=== PATIENT | male | born 1960 | race Caucasian/White ===

== ENCOUNTER 2022-11-06 19:12 | Emergency (ER) | payer OTHER ==
[2022-11-06] MEDS ORDERED: Proparacaine 0.5% Ophth Soln 15 ML Bottle EYELF PRN (19:19)
[2022-11-06] MEDS ORDERED: Fluorescein 1 MG Ophth Strip EYELF ONE (19:20)
[2022-11-06] MEDS ORDERED: Polymyxin B/Trimethoprim 10 ML Bottle EYELF ONE (19:59)
[2022-11-06] MEDS ORDERED: Bacitracin/Polymyxin B Ophth Oint 3.5 GM Tube EYELF SCH (21:00)
== END 2022-11-06 20:07 | disposition home or self-care (01) ==
LOC: VM.ED 19:12
DX: S05.02XA Injury of conjunctiva and corneal abrasion without foreign body, left eye, initial encounter (principal); W22.8XXA Striking against or struck by other objects, initial encounter
CPT/HCPCS: 99283

== ENCOUNTER 2023-10-13 21:12 | Emergency (ER) | payer OTHER | END 2023-10-13 21:36 | disposition home or self-care (01) | LOC: VM.ED 21:12 | DX: S61.317A Laceration without foreign body of left little finger with damage to nail, initial encounter (principal); W28.XXXA Contact with powered lawn mower, initial encounter | CPT/HCPCS: 12001; 99282 ==